=== PATIENT | male | born 1965 | race Caucasian/White ===

== ENCOUNTER 2017-12-29 13:45 | Inpatient (IN) | payer OTHER ==
[~2017-12-29] VITALS: Ht 182.9 cm; Wt 110.7 kg
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
[~2017-12-29 13:45] MED LIST: ARTIFICIAL TEAR15 M3 OPHTHALMIC; BACLOFEN 10MG T10 MG PO; BISACODYL SUPP10 MG RECTAL; CATAPRES-TTS 10.1 M1 TRANSDERM; CEFTIN500 MG PO; CELEXA20 MG PO; COLACE100 MG PO; DIPHENHIST50 MG PO; DUONEB 2.5-0.5 M3 ML INH; HALOPERIDOL 1 MG1 MG PO; HYDROCODON-ACE1 EA11 PO; KEFLEX500 MG PO; LYRICA100 MG PO; MIRALAX17 GM PO; MYLANTA SUSPENSION PO; NEURONTIN 300300 M1 PO; OXYCODONE HCL5 MG PO; OXYCONTIN10 M1 PO; PHENERGAN 25 MG25 M1 PO; PROBIOTIC1 EAC1 PO; PROVIGIL 100 M100 M1 PO; SENOKOT-S1 TA1 PO; TRAZODONE HCL100 MG PO; TYLENOL325 MG PO; XANAX 0.5 MG0.5 MG PO; ZANTAC 150MG T150 MG PO
[2017-12-29 17:45] VITALS: BP 130/46
[2017-12-29 17:48] LABS: HEMOGLOBIN 12.4 gm/dL (14.0-18.0); MCH 28.5 pg (26.0-34.0); MCHC 33.5 g/dL (28.0-37.0); MCV 85.1 fL (80.0-100.0); RBC 4.35 mil/uL (4.50-6.00); WBC 14.3 thou/uL (4.0-11.0)
[2017-12-29 17:57] LABS: CALCIUM 8.6 mg/dL (8.5-10.1); CREATININE 0.8 mg/dL (0.7-1.3); POTASSIUM 3.5 mmol/L (3.5-5.1)
[2017-12-29 18:03] LABS: ALBUMIN 2.6 g/dL (3.4-5.0); TOTAL BILIRUBIN 0.8 mg/dL (<0.1-1.0); TOTAL PROTEIN 7.2 g/dL (6.4-8.2)
[2017-12-29 21:00] VITALS: BP 132/76
[2017-12-29 23:15] VITALS: BP 133/83
[2017-12-30 04:30] VITALS: BP 153/79
[2017-12-30 06:11] LABS: HEMATOCRIT 35.4 % (42.0-52.0); HEMOGLOBIN 11.9 gm/dL (14.0-18.0); MCH 28.5 pg (26.0-34.0); MCHC 33.5 g/dL (28.0-37.0); MCV 85.1 fL (80.0-100.0); RBC 4.16 mil/uL (4.50-6.00); RDW 13.9 % (10.5-14.5); WBC 12.3 thou/uL (4.0-11.0)
[2017-12-30 06:35] LABS: ALBUMIN 2.4 g/dL (3.4-5.0); CALCIUM 8.3 mg/dL (8.5-10.1); CREATININE 0.8 mg/dL (0.7-1.3); POTASSIUM 3.2 mmol/L (3.5-5.1); TOTAL BILIRUBIN 0.6 mg/dL (<0.1-1.0); TOTAL PROTEIN 6.6 g/dL (6.4-8.2)
[2017-12-30 08:00] VITALS: BP 146/75
[2017-12-30 12:00] VITALS: BP 155/71
[2017-12-30 16:13] VITALS: BP 156/78
[2017-12-30 20:00] VITALS: BP 151/82; BP 1518/82
[2017-12-31 04:25] VITALS: BP 146/84
[2017-12-31 09:03] LABS: ALBUMIN 2.4 g/dL (3.4-5.0); CALCIUM 8.2 mg/dL (8.5-10.1); CREATININE 0.9 mg/dL (0.7-1.3); MAGNESIUM 1.9 mg/dL (1.8-2.4); PHOSPHORUS 1.4 mg/dL (2.5-4.9); TOTAL BILIRUBIN 0.5 mg/dL (<0.1-1.0); TOTAL PROTEIN 6.5 g/dL (6.4-8.2)
[2017-12-31 09:04] LABS: POTASSIUM 2.7 mmol/L (3.5-5.1)
[2017-12-31 09:08] VITALS: BP 136/82
[2017-12-31 12:40] VITALS: BP 156/88
[2017-12-31 17:12] VITALS: BP 151/89
[2017-12-31 17:15] LABS: HEMATOCRIT 35.8 % (42.0-52.0); HEMOGLOBIN 11.8 gm/dL (14.0-18.0)
[2017-12-31 17:52] LABS: CALCIUM 8.1 mg/dL (8.5-10.1); CREATININE 0.8 mg/dL (0.7-1.3); POTASSIUM 3.2 mmol/L (3.5-5.1)
[2017-12-31 21:07] VITALS: BP 142/74
[2018-01-01 00:41] LABS: CALCIUM 7.7 mg/dL (8.5-10.1); CREATININE 0.8 mg/dL (0.7-1.3); POTASSIUM 3.3 mmol/L (3.5-5.1)
[2018-01-01 00:47] LABS: ALBUMIN 2.2 g/dL (3.4-5.0); TOTAL BILIRUBIN 0.5 mg/dL (<0.1-1.0); TOTAL PROTEIN 5.9 g/dL (6.4-8.2)
[2018-01-01 01:45] LABS: ABSOLUTE NEUTROPHILS 7.8 thou/uL (1.4-8.2); BASOPHILS 0.1 % (0.0-2.0); EOSINOPHILS 0.2 % (0.0-3.0); HEMATOCRIT 34.8 % (42.0-52.0); HEMOGLOBIN 11.5 gm/dL (14.0-18.0); LYMPHOCYTES 14.8 % (24.0-44.0); MCH 28.4 pg (26.0-34.0); MCHC 33.1 g/dL (28.0-37.0); MCV 85.7 fL (80.0-100.0); PLATELET COUNT 124 thou/uL (150-400); POLYS 76.9 % (36.0-66.0); RBC 4.06 mil/uL (4.50-6.00); RDW 14.3 % (10.5-14.5); WBC 10.2 thou/uL (4.0-11.0)
[2018-01-01 05:55] VITALS: BP 158/8; BP 158/83
[2018-01-01 07:59] VITALS: BP 147/82
[2018-01-01 12:03] VITALS: BP 141/88
[2018-01-01 16:14] VITALS: BP 154/95
[2018-01-01 20:05] VITALS: BP 153/94
[2018-01-01 23:07] LABS: HEMATOCRIT 33.7 % (42.0-52.0); HEMOGLOBIN 11.5 gm/dL (14.0-18.0)
[2018-01-02 05:30] VITALS: BP 151/90
[2018-01-02 06:20] LABS: ABSOLUTE NEUTROPHILS 4.7 thou/uL (1.4-8.2); BASOPHILS 0.3 % (0.0-2.0); EOSINOPHILS 1.3 % (0.0-3.0); HEMATOCRIT 33.7 % (42.0-52.0); HEMOGLOBIN 11.4 gm/dL (14.0-18.0); LYMPHOCYTES 15.5 % (24.0-44.0); MCH 28.8 pg (26.0-34.0); MCHC 33.9 g/dL (28.0-37.0); MCV 85.2 fL (80.0-100.0); MONOCYTES 7.4 % (1.0-8.0); PLATELET COUNT 109 thou/uL (150-400); POLYS 75.5 % (36.0-66.0); RBC 3.95 mil/uL (4.50-6.00); RDW 14.1 % (10.5-14.5); WBC 6.2 thou/uL (4.0-11.0)
[2018-01-02 06:41] LABS: CALCIUM 7.8 mg/dL (8.5-10.1); CREATININE 0.6 mg/dL (0.7-1.3); MAGNESIUM 2.1 mg/dL (1.8-2.4); PHOSPHORUS 1.8 mg/dL (2.5-4.9); POTASSIUM 3.6 mmol/L (3.5-5.1)
[2018-01-02 08:01] VITALS: BP 157/79
[2018-01-02 12:00] VITALS: BP 156/91
[2018-01-02 15:28] VITALS: BP 141/75
[2018-01-02 20:00] VITALS: BP 154/92
[2018-01-03 04:00] VITALS: BP 133/83
[2018-01-03 07:31] LABS: ABSOLUTE NEUTROPHILS 4.4 thou/uL (1.4-8.2); BASOPHILS 0.5 % (0.0-2.0); EOSINOPHILS 1.8 % (0.0-3.0); HEMATOCRIT 33.1 % (42.0-52.0); HEMOGLOBIN 11.2 gm/dL (14.0-18.0); LYMPHOCYTES 18.3 % (24.0-44.0); MCH 28.9 pg (26.0-34.0); MCHC 33.8 g/dL (28.0-37.0); MCV 85.4 fL (80.0-100.0); MONOCYTES 8.6 % (1.0-8.0); PLATELET COUNT 103 thou/uL (150-400); POLYS 70.8 % (36.0-66.0); RBC 3.87 mil/uL (4.50-6.00); RDW 14.3 % (10.5-14.5); WBC 6.3 thou/uL (4.0-11.0)
[2018-01-03 07:46] LABS: CALCIUM 7.9 mg/dL (8.5-10.1); CREATININE 0.5 mg/dL (0.7-1.3); PHOSPHORUS 2.7 mg/dL (2.5-4.9); POTASSIUM 3.3 mmol/L (3.5-5.1)
[2018-01-03 09:12] VITALS: BP 137/89
[2018-01-03 16:46] VITALS: BP 137/92
[2018-01-03 20:15] VITALS: BP 132/86
[2018-01-04 02:39] VITALS: BP 135/80
[2018-01-04 07:11] LABS: CREATININE 0.5 mg/dL (0.7-1.3); POTASSIUM 3.6 mmol/L (3.5-5.1)
[2018-01-04 07:29] VITALS: BP 132/81
[2018-01-04 09:23] LABS: ABSOLUTE NEUTROPHILS 5.8 thou/uL (1.4-8.2); BASOPHILS 0.6 % (0.0-2.0); EOSINOPHILS 2.4 % (0.0-3.0); HEMATOCRIT 34.7 % (42.0-52.0); HEMOGLOBIN 11.4 gm/dL (14.0-18.0); LYMPHOCYTES 17.5 % (24.0-44.0); MCH 28.6 pg (26.0-34.0); MCV 86.6 fL (80.0-100.0); MONOCYTES 8.5 % (1.0-8.0); PLATELET COUNT 109 thou/uL (150-400); RDW 14.6 % (10.5-14.5); WBC 8.2 thou/uL (4.0-11.0)
[2018-01-04 11:00] LABS: MAGNESIUM 1.8 mg/dL (1.8-2.4)
[2018-01-04 11:31] VITALS: BP 129/78
[2018-01-04] MEDS ORDERED: MINOCIN100 MG PO (12:57)
[2018-01-04] MEDS ORDERED: COLACE100 MG PO (12:57)
[2018-01-04] MEDS ORDERED: MELATONIN5 M1 PO (12:57)
[2018-01-04] MEDS ORDERED: SENNA8.6 MG PO (12:57)
[2018-01-04] MEDS ORDERED: B & O SUPPRETT1 EAC1 RECTAL ×2 (13:00)
[2018-01-04 16:14] VITALS: BP 136/85
[2018-01-04] MEDS ORDERED: MS CONTIN15 MG PO ×2 (16:52→17:07)
[2018-01-04] MEDS ORDERED: OXYCODONE HCL5 MG PO (16:53)
[2018-01-04] MEDS ORDERED: ALPRAZOLAM 0.0.25 MG PO ×2 (16:53→17:07)
[2018-01-04] MEDS ORDERED: DETROL2 M1 PO (17:13)
== END 2018-01-04 16:45 | DRG 871 ==
LOC: 3W 13:45
PROVIDERS: Hospitalist; Internal Medicine; Nurse Practitioner Family
PROC: 3E0336Z Introduction of Nutritional Substance into Peripheral Vein, Percutaneous Approach (ICD-10-PCS; principal; 2017-12-31)
PROC: 05H933Z Insertion of Infusion Device into Right Brachial Vein, Percutaneous Approach (ICD-10-PCS; 2017-12-31)
DX: A41.9 Sepsis, unspecified organism (principal); G82.50 Quadriplegia, unspecified; E43 Unspecified severe protein-calorie malnutrition; N39.0 Urinary tract infection, site not specified; E87.1 Hypo-osmolality and hyponatremia; J98.11 Atelectasis; J90 Pleural effusion, not elsewhere classified; K56.7 Ileus, unspecified; Z87.442 Personal history of urinary calculi; Z68.33 Body mass index [BMI] 33.0-33.9, adult; I10 Essential (primary) hypertension; K21.9 Gastro-esophageal reflux disease without esophagitis; F32.9 Major depressive disorder, single episode, unspecified; F41.9 Anxiety disorder, unspecified; G25.81 Restless legs syndrome; K59.09 Other constipation; D69.6 Thrombocytopenia, unspecified; N31.9 Neuromuscular dysfunction of bladder, unspecified; D64.9 Anemia, unspecified; G89.29 Other chronic pain; E87.6 Hypokalemia; B95.62 Methicillin resistant Staphylococcus aureus infection as the cause of diseases classified elsewhere
CPT/HCPCS: 10779; 27000